=== PATIENT | female | born 1975 | race Caucasian/White ===

== ENCOUNTER 2018-09-25 09:01 | Day surgery (SDC) | payer OTHER ==
[~2018-09-25] VITALS: Ht 154.9 cm; Wt 76.0 kg
[2018-09-25] VITALS (12 sets, daily range): BP systolic 99–139; BP diastolic 59–92; PULSE 59–120; RESP 12–19; Ht 154.9 cm; Wt 76.0 kg
[~2018-09-25 09:01] MED LIST: PREN1CAP6
[2018-09-25] MEDS ORDERED: SOD CHLORIDE 0.9% 1,000 ML IV ONE (10:30)
[2018-09-25] MEDS ORDERED: CEFAZOLIN 2 GM/50 ML (PMX) 50 ML IVPB ONE (10:30)
[2018-09-25] MEDS ORDERED: FENTAnyl 50 MCG/ML VIAL ONE ×2 (11:43→12:41)
[2018-09-25] MEDS ORDERED: LIDOCAINE 2% (SDV) 5 ML INJ ONE (11:43)
[2018-09-25] MEDS ORDERED: PROPOFOL 20 ML ONE (11:43)
[2018-09-25] MEDS ORDERED: CEFAZOLIN 1 GM INJ ONE (11:43)
--- NOTE | 2018-09-25 11:47 | PREAC ---
Date/Time of Note Date/Time of Note DATE: 09/25/18 TIME: 11:47 Anesthesia Eval and Record Evaluation Time Pre-Procedure Interview DATE: 09/25/18 TIME: 11:47 Age 43 Sex female NPO: 8 hrs Preoperative diagnosis left neck lymphoma Planned procedure excisional biopsy left neck lymphoma Past Medical History Past Medical History: Includes Recreational drugs: Marijuana (last use yesterday) Surgery & Anesthesia Issues No known issue Meds Anticoagulation: No Beta Karis within 24 hr: No Reason Beta Karis not given: Pt. not on B-Karis Discontinued Reported Medications Vits#4/Iron Fum/Fa (PUREFE PLUS CAPSULE) 1 Each Capsule 12/24/12 [none] No Conflict Check 09/04/12 Current Medications Sodium Chloride 1,000 ml @ 75 mls/hr [id number] ONCE IV Last administered on 09/25/18at 10:31; Admin Dose 75 MLS/HR; Start 09/25/18 at 10:30; Stop 09/25/18 at 23:49 Meds reviewed: Yes Allergies Coded Allergies: No Known Drug Allergies (Verified Allergy, Unknown, 09/25/18) Allergies Reviewed: Yes Labs/Studies Labs Reviewed: Reviewed by anesthesiologist Result Diagram: 09/25/18 1020 09/25/18 1020 Laboratory Tests 09/25/18 10:20 test: Negative Pre-procedure Exam Last vitals Vital Signs Date Temp Pulse Resp B/P (MAP) Pulse Ox O2 O2 Flow FiO2 Time Delivery Rate 09/25/18 98.4 59 16 107/69 100 Room Air 10:38 (82) Airway: Adequate mouth opening, Adequate thyromental dist Mallampati: Mallampati II Teeth: Normal Lung: Normal Heart: Normal ASA Physical Status ASA physical status: 1 Emergency: None Planned Anesthetic General/MAC: LMA Planned Pain Management Parenteral pain med, Local by surgeon Pre-operative Attestations Prior to commencing anesthesia and surgery, the patient was re-evaluated, there was verification of: *The patient's identity *The results of appropriate recent lab work and preoperative vital signs *The above evaluation not changing prior to induction *Anesthetic plan, risk benefits, alternative and complications discussed with patient/family; questions answered; patient/family understands, accepts and wis hes to proceed. PRESTON QUEZADA Sep 25, 2018 11:47
[2018-09-25] MEDS ORDERED: OXYCODONE/ACETAMINOPHEN (5/325) TAB PO PRN ×2 (12:00)
[2018-09-25] MEDS ORDERED: MEPERIDINE 25 MG INJ IV PRN (12:00)
[2018-09-25] MEDS ORDERED: LABETALOL HCL 20MG INJ IV PRN (12:00)
[2018-09-25] MEDS ORDERED: FENTAnyl 50 MCG/ML VIAL IV PRN ×3 (12:00)
[2018-09-25] MEDS ORDERED: ONDANSETRON 4 MG INJ IV PRN (12:00)
[2018-09-25] MEDS ORDERED: BUPIVACAINE 0.5% (SDV) 30 ML INJ ONE (12:09)
[2018-09-25] MEDS ORDERED: METOCLOPRAMIDE 10 MG INJ ONE (12:18)
[2018-09-25] MEDS ORDERED: ONDANSETRON 4 MG INJ ONE (12:18)
[2018-09-25] MEDS ORDERED: DEXAMETHASONE 4 MG/ML 5 ML INJ ONE (12:18)
--- NOTE | 2018-09-25 13:08 | OPR ---
Date/Time of Note Date/Time of Note DATE: 09/25/18 TIME: 13:04 Operative Report Procedure Date: Sep 25, 2018 Preoperative Diagnosis lymphoma Postoperative Diagnosis same Operation/Procedure Performed 1. excisional biopsy of left neck tumor 4 cm 7 cm incision 2. localized adjacent tissue transfer with the use of skin flaps 14 sq cm defect of left neck 3. therapeutic injection of subcutaneous local anesthesia Surgeon see signature line Information Management Officer none Anesthesia Type: general Estimated Blood Loss: 0 - 10 ml's Transfusion none Specimen left neck tumor Grafts/Implants none Complications none Pt Condition Post Procedure: stable Indications This is a 43-year-old female with known lymphoma. She is here for excisional biopsy for treatment of the lymphoma tissue. Risks alternatives benefits and personal were discussed the patient. In particular due to the tumor being in the left neck increased risk of bleeding infection nerve injury and paresthesia anesthesia were discussed with the patient. Patient expressed understanding and consents to the operation. Procedure Description Patient is taken to the OR prepped and draped in usual sterile fashion. Surgical time was performed. IV antibiotics given. Left neck incision was made with a 15 blade. Dissection with cautery was carried down through the platysmal. Sternocleidomastoid muscle is seen and reflected laterally. This allowed access to the area of the tumor. The tumor was then excised and submitted to the pathologist was called in for the specimen. Good hemostasis status. Due to tissue defect localization just transfer with these of skin flaps was performed. Closure was first performed by closing the fascia over the sternocleidomastoid muscle. The platysmal layer was then closed with interrupted 3-0 Vicryl. Skin was closed with interrupted 3-0 Vicryl and running 4-0 Monocryl. Therapeutic contains local anesthesia was injected at the incisi on site. Steri-Strips and dressings were applied. Evelina PERAZA Sep 25, 2018 13:07
[2018-09-25] MEDS ORDERED: HYDROCODONE/APAP (5/325) TAB PO ONE (13:30)
--- NOTE | 2018-09-25 19:51 | PAC ---
Date/Time of Note Date/Time of Note DATE: 09/25/18 TIME: 19:51 Post-Anesthesia Notes Post-Anesthesia Note Last documented vital signs Vital Signs Date Temp Pulse Resp B/P (MAP) Pulse Ox O2 O2 Flow FiO2 Time Delivery Rate 09/25/18 97.5 101 16 99/59 (72) 100 14:06 09/25/18 Room Air 13:55 Activity: WNL Respiratory function: WNL Cardiovascular function: WNL Mental status: Baseline Pain reasonably controlled: Yes Hydration appropriate: Yes Nausea/Vomiting absent: Yes PRESTON QUEZADA Sep 25, 2018 19:51
== END 2018-09-25 14:47 | disposition home or self-care (01) ==
LOC: SDS 09:01
PROVIDERS: ATTEND Surgery
DX: C82.91 Follicular lymphoma, unspecified, lymph nodes of head, face, and neck (principal); F12.90 Cannabis use, unspecified, uncomplicated
CPT/HCPCS: 14041; 80053; 85025; 85610; 85730; 88304; 88313; J0690; J1100; J2405; J2765; J3010; Z7512; Z7610